=== PATIENT | female | born 1960 | race Caucasian/White ===

== ENCOUNTER 2024-02-05 15:34 | Emergency (ER) | payer BC, SELFPAY ==
[2024-02-05 15:57] VITALS: BP 141/85; PULSE 110; RESP 16; TEMP 36.7; O2SAT 100
--- NOTE | 2024-02-05 15:57 | ED.URI ---
HPI - URI/Sore Throat General Chief Complaint: Upper Respiratory Infection Stated Complaint: sore,sob,lightheaded,nausea Source: patient Mode of arrival: ambulatory Limitations: no limitations History of Present Illness HPI Narrative: 64 y/o female with hx DM presented for c/o fatigue and nausea x3 weeks, endorses heavy in chest for about 1 week described as not being able to take a full breath, and occasionally feels clammy. Endorses decreased po intake and unknown weight loss. Also reports nasal congestion and dry cough at night and started sneezing this week. Denies wheezing, chest pain, palpitations, vomiting or fever. Tested negative for COVID at home. Related Data Home Medications Medication Instructions Recorded Confirmed blood sugar diagnostic (OneTouch 02/05/24 02/05/24 Verio test strips) meloxicam 7.5 mg tablet 7.5 mg PO PRN PRN Pain, Moderate 02/05/24 02/05/24 metformin 500 mg tablet,extended 1,000 mg PO BID 02/05/24 02/05/24 release 24 hr rosuvastatin 20 mg tablet 20 mg PO DAILY 02/05/24 02/05/24 Allergies Allergy/AdvReac Type Severity Reaction Status Date / Time camphene AdvReac Mild Rash Verified 02/05/24 15:38 CAMPHOR AdvReac Mild RASH Uncoded 02/05/24 15:38 Review of Systems Review of Systems: CONSTITUTIONAL: reports body aches, denies fever, chills, or sweats. EYES: Denies visual changes, redness, or discharge. ENT: Reports rhinorrhea, congestion, Denies sore throat, or otalgia. CARDIOVASCULAR: Denies chest pain, palpitations, or edema. RESPIRATORY: Reports heaviness in chest, cough, denies wheezing. GASTROINTESTINAL: Reports nausea and decreased appetite Denies abdominal pain, vomiting, or diarrhea. GENITOURINARY: Denies dysuria or hematuria. MUSCULOSKELETAL: Denies back pain, joint pain, or myalgia. NEUROLOGIC: Denies headache, numbness, tingling, or weakness. All systems reviewed & are unremarkable except as noted in HPI and below PMFSH Past Medical History Medical History Diabetes Comments At time of signature, I have reviewed and agree with nursing past medical, surgical, social and family history unless otherwise noted. Please see nursing chart for further information. There is no relevant family history pertinent to the presenting complaint Exam Narrative: GENERAL: Well-appearing, in no acute distress. EYES: EOMI. No redness or drainage. Conjunctivae normal. ENT: Mucous membranes pink and moist. No rhinorrhea. TMs normal like reflex with clear effusion bilaterally. Throat normal. Uvula midline. NECK: Normal AROM. Supple. CHEST: No respiratory distress. Lungs clear to all smiley. HEART: Tachycardic Regular rhythm. No murmur appreciated. ABDOMEN: Soft, nontender, nondistended, normal active bowel sounds. EXTREMITIES: Normal range of motion. No edema. SKIN: Warm, dry, no rash. Capillary refill normal. Normal skin turgor. NEURO: Alert and oriented x3. Gait steady. PSYCH: Normal affect. Course Course Emergency Course: Patient is aware of diagnosis, understands and agrees to treatment plan. Anticipatory guidance given. Patient agrees to follow-up as directed and is aware of reasons to seek care at the emergency department. Portions of this record may have been created with voice recognition software Level of Care: Express Care Visit Vital Signs Vital signs: Vital Signs Temperature 98.1 F 02/05/24 15:57 Pulse Rate 110 H 02/05/24 15:57 Respiratory Rate 16 02/05/24 15:57 Blood Pressure 141/85 H 02/05/24 15:57 Pulse Oximetry 100 02/05/24 15:57 Oxygen Delivery Room Air 02/05/24 15:57 Temperature 98.1 F 02/05/24 15:57 Pulse Rate 110 H 02/05/24 15:57 Respiratory Rate 16 02/05/24 15:57 Blood Pressure 141/85 H 02/05/24 15:57 Pulse Oximetry 100 02/05/24 15:57 Oxygen Delivery Room Air 02/05/24 15:57 Transfer Transfered to: [facility]
[2024-02-05 16:11] LABS: EDINFLUASCREEN Negative; EDINFLUBSCREEN Negative
--- NOTE | 2024-02-05 16:21 | ECG_ITS ---
Test Date: 2024-02-05 16:32:50 Measurements Intervals [place] Rate: 106 P: 56 ID: 126 QRS: 21 QRSD: 84 T: 20 QT: 317 QTc: 421 Interpretive Statements SINUS TACHYCARDIA NONSPECIFIC T-WAVE ABNORMALITY No previous ECG available for comparison Electronically Signed On 02-06-2024 10:33:53 CDT by Jon Ferrari M.D.
== END 2024-02-05 16:42 | disposition short-term general hospital (02) ==
PROVIDERS: Emergency Provider Nurse Practitioner Family
DX: R07.89 Other chest pain (principal); Z20.822 Contact with and (suspected) exposure to COVID-19; E11.9 Type 2 diabetes mellitus without complications
CPT/HCPCS: 87426; 87804; 93005; 99213; G0463

== ENCOUNTER 2025-01-30 11:31 | Emergency (ER) | payer BC, SELFPAY ==
[2025-01-30 11:47] VITALS: BP 171/87; PULSE 98; RESP 18; TEMP 36.4; O2SAT 100
--- OUTSIDE RECORDS SUMMARY | 2025-01-30 12:59 | XMS_ITS | Clinical Summary ---
Author Organization [facility] Address [address] [place] [address] Care Team Providers Care Medical Terminologist Name Role Phone Unavailable Primary Care Provider Unavailabl e Source Comments [facility],non-owned Affiliates and Associated Physician Practices is amultiple site organization consisting of ambulatory clinics and hospital sitesin [place], [place], [place] and [place]. This disclosure is being madepursuant to the Care Everywhere program and may not contain all information available regarding this patient. Last updated [employer] Allergies No known active allergies Medications * Be aware that medications may not be up to date on this document. Alwaysverify current medications with the patient. No known medications Active Problems No known active problems Family History Medical History Relation Name Comments Hypertension Father Other - Cardiac Father Arthritis - Rheumatoid Mother Cancer - Breast Mother Diabetes - Type 2 Mother Hypertension Mother Other - Cardiac Mother Asthma Neg Hx Autoimmune Disease Neg Hx Bipolar Disorder Neg Hx Cancer - Colon Neg Hx Cancer - Other Neg Hx Cancer - Ovarian Neg Hx Cancer - Pancreatic Neg Hx Cancer - Prostate Neg Hx Depression Neg Hx Eczema Neg Hx Migraine Neg Hx Osteoporosis Neg Hx Seizures Neg Hx Sudd. <30 Neg Hx Thyroid Disease Neg Hx Ulcerative Colitis Neg Hx Relation Name Status Comments Father Mother Alive Social History Tobacco Use Types Packs/Day Years Used Date Smoking Tobacco: Never Smokeless Tobacco: Never Tobacco Cessation:Counseling Given: No Alcohol Use Standard Drinks/Week Comments No 0 (1 standard drink = 0.6 oz pur e alcohol) Comments No Sex and Gender Information Value Date Recorded Sex Assigned at Not on file Legal Sex Female 2:20 PM CDT Gender Identity Not on file Sexual Orientation Not on file Last Filed Vital Signs Vital Sign Reading Time Taken Comments Blood Pressure 130/88 03/18/2020 11:18 AM CDT Pulse 87 03/18/2020 11:18 AM CDT Temperature 36.6 C (97.9 F) 03/18/2020 11:18 AM CDT Respiratory Rate 14 03/18/2020 11:18 AM CDT Oxygen Saturation 97% 03/18/2020 11:18 AM CDT Inhaled Oxygen Concentration - - Weight 86.2 kg (190 lb) 03/18/2020 11:18 AM CDT Height 162.6 cm (5' 4) 03/18/2020 11:18 AM CDT Body Mass Index 32.61 03/18/2020 11:18 AM CDT Plan of Treatment Health Maintenance Due Date Last Done Comments COLOGUARD (AGES 45-75) - COL ON CA SCREENING 1960 COLON MONITORING 1960 COLONOSCOPY - COLON CA SCREENING 1960 CT COLONOGRAPHY - COLON CA SCREENING 1960 Colorectal Cancer Screening 1960 FIT - COLON CA SCREENING 1960 FLEX SIG - COLON CA SCREENING 1960 LIPID TESTING 1960 MAMMOGRAM 1960 HIV SCREENING 12/23/1975 HEPATITIS C SCREENING 12/18/1978 DTAP/TDAP/TD VACCINES (1 - Tdap) 12/23/1979 PNEUMOCOCCAL VACCINE 50+ (1 of 1 - PCV) 2010 ZOSTER VACCINE (1 of 2) 2010 SCREENING FOR DIABETES 03/18/2020 COVID-19 VACCINE ( - 2023-2 5 season) 2024 DEPRESSION SCREENING 06/15/2024 INFLUENZA VACCINE (#1) 2025 Respiratory Syncytial Virus (RSV) Vaccine Pt: or over 60 yrs (1 - 1-dose 75+ series) 12/23/2035 HEPATITIS B VACCINE Aged Out No longe r eligible based on patient's age to complete this topic HIB VACCINE Aged Out No longer eligi ble based on patient's age to complete this topic HPV VACCINE Aged Out No longer eligi ble based on patient's age to complete this topic MENINGOCOCCAL (Group B) VACC INE SHARED DECISION-MAKING Aged Out No longer eligibl e based on patient's age to complete this topic MENINGOCOCCAL GROUPS A/C/Y/W VACCINE Aged Out No longer eligible b ased on patient's age to complete this topic Insurance AETNA AETNA
--- OUTSIDE RECORDS SUMMARY | 2025-01-30 12:59 | XMS_ITS | Encounter Summary ---
Author Organization [facility] [address] [place] [address] Care Team Providers Care Cable Testers Helper Name Role Phone Unavailable Primary Care Provider Unavailabl e Reason for Visit * Reason Onset Date Comments Results 03/28/2020 needs letter [facility] covid 19 test was negative or copy of test Letter for School or Work 03/28/2020 Encounter Details Date Type Department Care Team (Late st Contact Info) Description 03/28/2020 Telephone [facility] [address], [address] [place] [address] Provider, [facility] Results (needs letter stating covid 19 test was negative or copy of test); Letter for School or Work Social History Tobacco Use Types Packs/Day Years Used Date Smoking Tobacco: Never Smokeless Tobacco: Never Alcohol Use Standard Drinks/Week Comments No 0 (1 standard drink = 0.6 oz pur e alcohol) Comments No Sex and Gender Information Value Date Recorded Sex Assigned at Not on file Legal Sex Female 2:20 PM CDT Gender Identity Not on file Sexual Orientation Not on file COVID-19 Exposure Response Date Recorded In the last month, have you been in contact with someone who was confirmed or suspected to have Coronavirus / COVID-19? No / Unsure 03/18/2020 10:45 AM CDT documented as of this encounter Miscellaneous Notes * Telephone Encounter - Daniela Patton APRN-CNP - 03/28/2020 1:30 PM CDT Left VM that patient can stop into clinic and fill out THONG to be given a copy of her test results. Left call back number for questions. * Telephone Encounter - Alysa Loja - 03/28/2020 12:47 PM CDT Who is calling? self What is the reason for call? Proof that covid 19 test was negative for work Expected Response from the Clinic? Call back documented in this encounter Plan of Treatment Not on file documented as of this encounter Visit Diagnoses Not on filedocumented in this encounter
--- NOTE | 2025-01-30 14:09 | ED.NAVMDI ---
HPI - Nausea/Vomiting/Diarrhea General Chief complaint: Nausea/Vomiting/Diarrhea Stated complaint: nausea Time Seen by Provider: 01/30/25 11:58 Source: patient and RN notes reviewed Mode of arrival: ambulatory Limitations: no limitations History of Present Illness HPI Narrative: Patient presents today complaining of 3 day history of nausea, vomiting, dizziness. Dizziness started when patient laid down and rolled over in bed and is worse with head movement. Vomiting lasted for just over 36 hours before resolving. The dizziness has improved but not completely resolved. She does continue to have persistent nausea. Denies fever, abdominal pain, shortness of breath, chest pain. She has tried no OTC treatment prior to arrival. Patient does have history of vertigo several years ago. Patient has been able to keep down some fluids and soup. Blood sugar this morning was 95 at home. Patient also states she has been out of her Metformin for several days as she is in between PCPs. Would like a refill. She takes 1000mg BID. Related Data Home Medications ?Medication ?Instructions ?Recorded ?Confirmed ?Last Taken ?Type blood sugar diagnostic (OneTouch 02/05/24 02/05/24 Unknown History Verio test strips) meloxicam 7.5 mg tablet 7.5 mg PO PRN PRN Pain, Moderate 02/05/24 02/05/24 Unknown History metformin 500 mg tablet,extended 1,000 mg PO BID 02/05/24 02/05/24 Unknown History release 24 hr rosuvastatin 20 mg tablet 20 mg PO DAILY 02/05/24 02/05/24 Unknown History Allergies Allergy/AdvReac Type Severity Reaction Status Date / Time camphene AdvReac Mild Rash Verified 01/30/25 11:45 CAMPHOR AdvReac Mild RASH Uncoded 01/30/25 11:45 PMFSH Past Medical History Medical History Diabetes Comments At time of signature, I have reviewed and agree with nursing past medical, surgical, social and family history unless otherwise noted. Please see nursing chart for further information. There is no relevant family history pertinent to the presenting complaint Exam Narrative: GENERAL: Well-appearing, well-nourished, and in no acute distress. HEAD: Normocephalic, atraumatic. EYES: EOMI. PERRL. No nystagmus. No redness or drainage. Conjunctivae normal. ENT: Mucous membranes pink and moist. Nares clear. No rhinorrhea. TMs normal bilaterally. Throat normal. Uvula midline. NECK: Normal AROM. Supple. No lymphadenopathy. CHEST: No respiratory distress. Clear to auscultation. HEART: Regular rate and rhythm. No murmur appreciated. Normal peripheral pulses. ABDOMEN: Soft, nontender, nondistended, normal active bowel sounds. EXTREMITIES: Normal range of motion. No edema. SKIN: Warm, dry, no rash. Capillary refill normal. Normal skin turgor. NEURO: No focal deficits. Alert and oriented x3. Gait steady. Head movement elicits some dizziness. PSYCH: Normal affect. No signs of depression or anxiety. Course Course Level of Care: Express Care Visit Vital Signs Vital signs: Vital Signs Temperature 97.6 F 01/30/25 11:47 Pulse Rate 98 01/30/25 11:47 Respiratory Rate 18 01/30/25 11:47 Blood Pressure 171/87 H 01/30/25 11:47 Pulse Oximetry 100 01/30/25 11:47 Oxygen Delivery Room Air 01/30/25 11:47 Temperature 97.6 F 01/30/25 11:47 Pulse Rate 98 01/30/25 11:47 Respiratory Rate 18 01/30/25 11:47 Blood Pressure 171/87 H 01/30/25 11:47 Pulse Oximetry 100 01/30/25 11:47 Oxygen Delivery Room Air 01/30/25 11:47 Reviewed MDM - Nausea/Vomiting/Diarrhea MDM Narrative Medical decision making narrative: 64-year-old female patient presents with 3 day history of nausea and dizziness, described as room spinning. Initially had some vomiting for approximately 36 hours before resolving, but patient has persistent nausea. History of vertigo in the past. No OTC medication has been tried for current symptoms. She has been able to keep down fluids at home. Blood sugar this morning was 95. Vital signs stable. She is also requesting refill of her metformin as she is in between PCPs. Exam is normal aside from increased dizziness with head movement. Recommend OTC meclizine for dizziness. Will prescribe some Zofran for nausea. Advance diet as tolerated. Patient also requesting work excuse to rest at home. Will provide. ED precautions given. Recommend PCP or ENT follow up if dizziness symptoms persist. Differential Diagnosis Differential diagnosis: Likely gastroenteritis, dehydration and other (Vertigo, BPPV) Critical Care Time Critical Care Time Critical Care Time: No Discharge Plan Discharge Clinical Impression: Vertigo, Nausea, Medication refill Patient Disposition: Home Condition: Stable Instructions: Vertigo (DC) Additional Instructions: Please take the Zofran as needed for your nausea. For your dizziness symptoms, you may try some Meclizine (brand name Bonine). If symptoms persist, please follow up with a PCP or ENT for further evaluation. Take your Metformin as prescribed. Your blood pressure was elevated above 120/80 today at Urgent Care. This puts you above the threshold for follow up. Please schedule a followup visit with your personal physician as soon as possible, for further evaluation and treatment. Even blood pressure exceeding 120/80 may indicate pre-hypertension. Patient Language: Algerian Prescriptions: New ondansetron 4 mg tablet,disintegrating 4 mg PO TID PRN (Reason: nausea and vomiting) Qty: 15 0RF metformin [Fortamet] 500 mg tablet extended release 24hr 1,000 mg PO BID 30 Days Qty: 120 0RF No Action (DME) OneTouch Verio test strips Strip MISCELLANEOUS meloxicam 7.5 mg tablet 7.5 mg PO PRN PRN (Reason: Pain, Moderate) metformin 500 mg tablet extended release 24 hr 1,000 mg PO BID rosuvastatin 20 mg tablet 20 mg PO DAILY Follow-up/Referrals: Franco Smith MD [Physician] - Mason Sy MD [Physician] - PHYSICIAN,MANAGER LONG TERM CARE [Primary Care Provider] - Stand Alone Forms: Work/School Release IP Time of Disposition: 12:25
== END 2025-01-30 12:28 | disposition home or self-care (01) ==
PROVIDERS: Emergency Provider Nurse Practitioner
DX: R42 Dizziness and giddiness (principal); Z76.0 Encounter for issue of repeat prescription; R11.0 Nausea; E11.9 Type 2 diabetes mellitus without complications
CPT/HCPCS: 99213; G0463